=== PATIENT | female | born 1980 | race Caucasian/White ===

== ENCOUNTER 2016-12-27 11:40 | Emergency (ER) | payer BC ==
[~2016-12-27] VITALS: Ht 165.1 cm; Wt 90.0 kg
[~2016-12-27 11:40] MED LIST: CIPRO500 MG PO; NAPROXEN500 MG PO; PYRIDIUM200 MG PO
[2016-12-27 12:31] LABS: ADD MIUA? YES; BILIRUBIN NEGATIVE; BLOOD NEGATIVE; COLOR AMBER ((YELLOW)); GLUCOSE (STRIP) NEGATIVE; KETONES 5; LEUKOCYTES LARGE; NITRITE NEGATIVE; PROTEIN (STRIP) 30; SPECIFIC GRAVITY 1.031 (1.000-1.030); UROBILINOGEN 0.2 MG/DL (0.2-1.0)
[2016-12-27 12:38] LABS: BACTERIA RARE /HPF; CALCIUM OXALATE CRYSTALS 4+ /HPF; EPITHELIAL CELLS 1+ /HPF; MUCUS NONE SEEN /LPF; RED BLOOD CELLS 0-5 /HPF (0-5); UCUL ADDED? NO; UNCLASSIFIED CASTS 0-5 /LPF; WHITE BLOOD CELLS 30-40 /HPF (0-5)
[2016-12-27 13:06] LABS: HEMATOCRIT 36.6 % (36.0-46.0); MCH 29.5 PG (29.0-34.0); MCHC 34.4 G/DL (30.0-36.0); MCV 85.7 FL (83-99); MEAN PLAT.VOLUME 10.3 uM^3 (9.5-12.4); PLATELET COUNT 300 K/uL (156-360); RBC DIS.WIDTH-CV 12.6 % (11.8-14.6); RBC DIS.WIDTH-SD 38.1 % (39-53); RED BLOOD COUNT 4.27 M/uL (3.80-5.20); WHITE BLOOD COUNT 6.5 K/uL (4.1-10.2)
[2016-12-27 13:15] LABS: CHLORIDE 108 mEq/L (99-109); POTASSIUM 3.8 mEq/L (3.7-5.4); SODIUM 140 mEq/L (136-147)
[2016-12-27 13:17] LABS: GLUCOSE 97 mg/dL (70-99)
[2016-12-27 13:19] LABS: ANION GAP 9 MEQ/L (2-14)
[2016-12-27 13:21] LABS: GFR ESTIMATE (CALCULATED) > 59 mL/min/
[2016-12-27 13:22] LABS: UREA NITROGEN (BUN) 13 mg/dL (9-23)
[2016-12-27 13:31] LABS: QUANTITATIVE HCG < 4.0 MIU/ML
[2016-12-27] MEDS ORDERED: NORCO 5/3251 TABLET PO (13:45)
[2016-12-27] MEDS ORDERED: CIPRO500 MG PO (13:45)
[2016-12-27 13:52] VITALS: BP 111/74
== END 2016-12-27 13:53 | disposition home or self-care (01) ==
LOC: EME 11:40
DX: N12 Tubulo-interstitial nephritis, not specified as acute or chronic (principal); Z88.0 Allergy status to penicillin
CPT/HCPCS: 80048; 81003; 84702; 85027; 87086; 99281; 99284